=== PATIENT | female | born 1945 | race Caucasian/White ===

== ENCOUNTER 2018-01-25 18:14 | Emergency (ER) | payer MEDICARE, OTHER ==
[2018-01-25 18:26] VITALS: BP 123/57; O2SAT 96
--- NOTE | 2018-01-25 18:33 | ERPHSYRPT ---
- History of Present Illness Time Seen by Provider: 01/25/18 18:28 Source: patient, family Exam Limitations: no limitations Patient Subjective Stated Complaint: pt reports falling up a step, landing on her right arm. pt complains of pain to the right upper extremity at the forearm and a skin tear. pt denies LOC or any other injury. Triage Nursing Assessment: pt is aox3, pupils perrl, resps easy and non labored , radial pulses strong and equal, skin pink warm dry. skin tear noted to the right forearm, skin is well approximated, bleeding is minimal at this time. pt sensation and ROM intact. Physician History: The patient is a 72-year-old female with her complaining that she fell up the stairs as she was walking up them. She complains of hitting her right forearm causing a skin tear. She is right-handed. She denies numbness or tingling. She is able to use her right hand and fingers without difficulty. She did not hit her head. Her past medical history significant for thyroid problem, hypertension, and high cholesterol. Occurred: just prior to arrival Reason for Fall: tripped, fell from standing pos Injuries/Pain Location: upper extremity (right forearm) Loss of Consciousness: no loss of consciousness Quality: aching Severity of Pain-Max: mild Severity of Pain-Current: mild Modifying Factors: Improves With: nothing Associated Symptoms (Fall): other (skin tear) Allergies/Adverse Reactions: No Known Drug Allergies Allergy (Unverified 01/04/12 18:34) Home Medications: Atorvastatin Calcium [Lipitor] HS 01/04/12 [History] Carvedilol [Coreg] BID 01/04/12 [History] Esomeprazole Magnesium [Nexium] BID 01/04/12 [History] Estradiol DAILY 01/04/12 [History] Ramipril [Altace] BID 01/04/12 [History] Spironolactone 25 mg [Aldactone 25 MG] HS 01/04/12 [History] Hx Tetanus, Diphtheria Vaccination/Date Given: Yes Hx Influenza Vaccination/Date Given: Yes Hx Pneumococcal Vaccination/Date Given: Yes Immunizations Up to Date: Yes - Review of Systems Constitutional: No Fever, No Chills Eyes: No Symptoms Ears, Nose, & Throat: No Symptoms Respiratory: No Cough, No Dyspnea Cardiac: No Chest Pain, No Edema, No Syncope Abdominal/Gastrointestinal: No Abdominal Pain, No Nausea, No Vomiting, No Diarrhea Genitourinary Symptoms: No Dysuria Musculoskeletal: Fall, Injury Skin: Other (skin tear) Neurological: No Dizziness, No Focal Weakness, No Sensory Changes Psychological: No Symptoms Endocrine: No Symptoms Hematologic/Lymphatic: No Symptoms Immunological/Allergic: No Symptoms All Other Systems: Reviewed and Negative - Past Medical History Pertinent Past Medical History: Yes Neurological History: No Pertinent History ENT History: No Pertinent History Cardiac History: Other Respiratory History: No Pertinent History Endocrine Medical History: No Pertinent History Musculoskeletal History: No Pertinent History GI Medical History: No Pertinent History Other Medical History: cardiomyopathy, pacer defib - Past Surgical History Past Surgical History: Yes Cardiac: Internal Defibrillator, Pacemaker Female Surgical History: Hysterectomy Other Surgical History: floating 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 - Social History Smoking Status: Never smoker Exposure to second hand smoke: No Drug Use: none Patient Lives Alone: No - Female History Hx Now: No - Nursing Vital Signs Nursing Vital Signs: Initial Vital Signs Temperature 98.4 F 01/25/18 18:16 Respiratory Rate 61 H 01/25/18 18:16 Blood Pressure 123/57 01/25/18 18:16 O2 Sat by Pulse Oximetry 96 01/25/18 18:16 Pain Scale Pain Intensity 5 - Leelee Coma Score Best Eye Response ([place]): (4) open spontaneously Best Verbal Response ([place]lee): (5) oriented Best Motor Response ([place]): (6) obeys commands [place] Total: 15 - Physical Exam General Appearance: no apparent distress, alert Head Injury: no evidence of injury Eye Exam: PERRL/EOMI ENT Exam: airway nml Neck Exam: normal inspection, No tenderness Respiratory/Chest Exam: normal breath sounds, No chest tenderness, No respiratory distress Cardiovascular Exam: normal heart sounds, regular rate/rhythm Gastrointestinal Exam: soft, No tenderness, No distention, No guarding, No ecchymosis Rectal Exam: not done Back Exam: normal inspection, No vertebral tenderness Extremity Exam: normal inspection, normal range of motion, pelvis stable, No deformities Neurologic Exam: alert, oriented x 3, cooperative, sensation nml, No motor deficits Skin Exam: laceration (3 cm flap skin tear to mid right forearm) SpO2 Interpretation: normal SpO2: 96 Oxygen Delivery: Room Air - Progress Progress: improved - Departure Time of Disposition: 18:32 Departure Disposition: Home Clinical Impression: Fall, Skin tear of forearm without complication Condition: Stable Critical Care Time: No Additional Instructions: You had a fall that caused a small skin tear to your right forearm. The skin tear was repaired with Dermabond and Steri-Strips. Allow the Steri-Strips to fall off on their own. Take Keflex 500 mg 4 times a day for 10 days. Call your physician and inquire about how long ago you received a tetanus vaccination. If it's within 5-10 years, you are up-to-date. Follow-up with her primary medical doctor as needed. Prescriptions: Cephalexin Mh 500 mg [Keflex 500 mg] 1 cap PO QID #40 capsule
== END 2018-01-25 19:05 | disposition home or self-care (01) ==
LOC: ED 18:14
DX: S51.811A Laceration without foreign body of right forearm, initial encounter (principal); M79.631 Pain in right forearm; W10.9XXA Fall (on) (from) unspecified stairs and steps, initial encounter; Z79.899 Other long term (current) drug therapy
CPT/HCPCS: 12002; 99283